=== PATIENT | male | born 1970 | race Caucasian/White ===

== ENCOUNTER 2017-02-27 09:25 | Emergency (ER) | payer MEDICAID ==
[2017-02-27 09:33] VITALS: BP 140/95; PULSE 72; RESP 16; TEMP 98.4; O2SAT 99
--- NOTE | 2017-02-27 11:37 | EDPHY ---
H & P Smoking Status: Current every day smoker Time Seen by Provider: 02/27/17 11:10 HPI/ROS: CHIEF COMPLAINT: Substance abuse HISTORY OF PRESENT ILLNESS: 46-year-old male presents to the emergency department by private vehicle with his friends requesting detox or substance abuse. The patient smokes cocaine and has for last several years. He has been through detox in the past. His last use was last evening. He states currently he feels fine. He thinks that he needs detox. He is not suicidal or homicidal. He does feel depressed. No chest pain or difficulty breathing. No abdominal pain. REVIEW OF SYSTEMS: Constitutional: No fever, no chills. Eyes: No double or blurry vision. ENT: No sore throat. Respiratory: No cough, no shortness of breath. Cardiac: No chest pain. Gastrointestinal: No abdominal pain, vomiting or diarrhea. Genitourinary: No dysuria. Musculoskeletal: No neck or back pain. Skin: No rashes. Neurological: No headache. (Melyssa Dos Santos) Past Medical/Surgical History: Substance abuse (Melyssa Dos Santos) Social History: Homeless (Melyssa Dos Santos) Physical Exam: General Appearance: Alert, no distress. Eyes: Pupils equal and round. Extraocular motions are all intact. ENT: Mouth: Mucous membranes moist. Respiratory: No wheezing, rhonchi, or rales, lungs are clear to auscultation. Cardiovascular: Regular rate and rhythm. Gastrointestinal: Abdomen is soft and nontender, no masses, no rebound or guarding, bowel sounds normal. Neurological: Alert and oriented x 3, cranial nerves II through XII grossly intact Skin: Warm and dry, no rashes. Musculoskeletal: Nontender to palpate along the cervical, thoracic or lumbar spine. Neck is supple. Extremities: Full range of motion and no peripheral edema. Psychiatric: Patient is oriented X 3, there is no agitation. (Melyssa Dos Santos) Constitutional: Initial Vital Signs Temperature (C) 36.9 C 02/27/17 09:30 Heart Rate 72 02/27/17 09:30 Respiratory Rate 16 02/27/17 09:30 Blood Pressure 140/95 H 02/27/17 09:30 O2 Sat (%) 99 02/27/17 09:30 O2 Delivery Mode Room Air Allergies/Adverse Reactions: No Known Allergies Allergy (Unverified 02/27/17 09:29) Home Medications: Medication Instructions Recorded NK [No Known Home Meds] 02/27/17 Medical Decision Making ED Course/Re-evaluation: 46-year-old male presents to the emergency department feeling depressed. He would like to become sober. He has a history of abusing cocaine. Last use was last evening. The patient is not suicidal homicidal. He denies auditory visual hallucinations. He was brought in by a friend as well as his ex-. I spent a great deal of time talking with the patient about services that could be offered. The patient does not feel that he needs inpatient services. The friend as well as ex- at bedside, however feel that he needs inpatient treatment. The patient I feel has a capacity to make his own decision. He states that he is not suicidal. He is willing to go to the [facility]. Case was discussed with Dr. Erin Cook, secondary supervising physician, who also talked with the patient and family at bedside. I also spoke with Jonathan, mental health credit interviewer, who provided resources for the patient. He will be [facility] to the [facility]. I also spoke with [facility] and he can be seen at any time in their crisis department. He was given information for this. I also spoke with the addiction recovery Center and the patient was advised to go to the [facility]. ( Melyssa Dos Santos) Differential Diagnosis: Depression including functional and major depression, situational depression, medication side effect, drugs and alcohol abuse. (Melyssa Dos Santos) Other Provider: I evaluated and participated in the management of the patient. I also evaluated the patient independently. My co-signature indicates that I have reviewed this chart and I agree with the findings and plan of care as documented. My personal H&P findings include: 46-year-old male here with his family and friends requesting detox. Patient tells me he has had a long zurita with substance abuse and has been in and out of a variety of treatment centers. He has tried the [facility] previously. His physical exam is normal with no tachycardia or overt affects of cocaine. I held a long discussion with the patient and his family. Currently, the patient would be appropriate for outpatient substance abuse treatment and perhaps substance abuse treatment at the [facility] I understand that family is frustrated that inpatient treatment is not available for this patient at this time and they are concerned that the patient will not follow through. Patient does understand that the success of his substance abuse treatment is largely dependent on himself. He is not suicidal or homicidal. He is not gravely disabled. He was also seen by Jonathan with [facility]. Outpatient resources and non hospital base resources were discussed at length the patient and his family. (Erin Cook) Departure - Departure Disposition: Home, Routine, Self-Care Clinical Impression: Substance abuse Condition: Good Instructions: Cocaine Abuse (ED) Additional Instructions: Go to the [facility] Referrals: [facility] [Outside] - As per Instructions [facility] [Outside] - As per Instructions
--- NOTE | 2017-02-27 14:46 | ASDISCHSUM ---
Discharge Information Plan Status:Substance Abuse Referrals Medically Cleared to Leave: Discharge Date:02/27/2017 01:31 PM D/C Disposition:Streets (Homeless) ADT D/C Disposition:Home, Routine, Self-Care Projected Discharge Date:02/27/2017 01:31 PM Transportation at D/C:None or Unknown Discharge Delay Reason: Follow-Up Date:02/27/2017 01:31 PM Discharge Slot: Final Diagnosis: Placement Information Patient Contact Information Contact Name:NICOLE Relationship:Other Address: Work Phone: City: [facility] Phone: State/Zip Code: Email: Financial Information Financial Class: Primary Plan Desc:[employer] Primary Plan Number:[id number] Secondary Plan Desc: Secondary Plan Number: Assessment Information Intervention Information
== END 2017-02-27 13:31 | disposition home or self-care (01) ==
DX: F19.10 Other psychoactive substance abuse, uncomplicated (principal); F17.200 Nicotine dependence, unspecified, uncomplicated